=== PATIENT | male | born 1970 | race Caucasian/White ===

== ENCOUNTER 2018-08-26 01:53 | Emergency (ER) | payer BC, OTHER, SELFPAY ==
[~2018-08-26] VITALS: Ht 180.3 cm; Wt 90.3 kg
[2018-08-26 01:59] VITALS: BP 139/95
--- NOTE | 2018-08-26 02:09 | NUR ---
PT REPORTS RIGHT UPPER DENTAL PAIN WITH SWELLING. pt stated upper molar pain was started saturday . rt side face is swollen now
[2018-08-26] MEDS ORDERED: OXYcodone/APAP 10/325MG TABLET ONE (02:42)
[2018-08-26] MEDS ORDERED: CLINDAMYCIN 300 MG CAPSULE ONE (02:42)
--- NOTE | 2018-08-26 02:50 | NUR ---
PT MEDICATED PER eMAR, GIVEN ICE PACK
--- NOTE | 2018-08-26 02:57 | NUR ---
Patient/Caregiver given discharge instructions and they have confirmed that they understand the instructions. Patient ambulatory with steady gait.
[2018-08-26] MEDS ORDERED: CLINDAMYCIN 300 MG CAPSULE PO ONE (03:00)
[2018-08-26] MEDS ORDERED: OXYcodone/APAP 10/325MG TABLET PO ONE (03:00)
== END 2018-08-26 03:00 | disposition home or self-care (01) ==
LOC: ED 02:40
DX: L02.01 Cutaneous abscess of face (principal); K08.89 Other specified disorders of teeth and supporting structures
CPT/HCPCS: 99283